=== PATIENT | male | born 1990 | race Two or more races ===

== ENCOUNTER 2020-02-04 00:14 | Emergency (ER) | payer SELFPAY ==
[~2020-02-04] VITALS: Ht 170.2 cm; Wt 87.3 kg
[2020-02-04 00:17] VITALS: BP 140/89
[2020-02-04] MEDS ORDERED: LIDOCAINE-MPF 1%, 5ML ONE (00:52)
[2020-02-04] MEDS ORDERED: LIDOCAINE-MPF 1%, 5ML INFIL ONE (01:00)
[2020-02-04] MEDS ORDERED: NEOSPORIN OINT. PKT 1 PACKET ONE (02:24)
== END 2020-02-04 02:36 | disposition home or self-care (01) ==
LOC: EDBD 00:14 → ED 01:23
DX: S61.215A Laceration without foreign body of left ring finger without damage to nail, initial encounter (principal); G89.11 Acute pain due to trauma; M79.642 Pain in left hand; F17.210 Nicotine dependence, cigarettes, uncomplicated; W26.0XXA Contact with knife, initial encounter; Y93.89 Activity, other specified; Y92.098 Other place in other non-institutional residence as the place of occurrence of the external cause; Y99.8 Other external cause status
CPT/HCPCS: 12041; 99284